=== PATIENT | female | born 1995 | race Two or more races ===

== ENCOUNTER 2021-04-28 17:36 | Outpatient (CLI) | payer OTHER | END 2021-04-28 22:15 | disposition home or self-care (01) | LOC: GENOP 17:36 | DX: O99.891 Other specified diseases and conditions complicating pregnancy (principal); O36.8320 Maternal care for abnormalities of the fetal heart rate or rhythm, second trimester, not applicable or unspecified; R10.9 Unspecified abdominal pain; R11.0 Nausea; R42 Dizziness and giddiness; Z3A.26 26 weeks gestation of pregnancy | CPT/HCPCS: 81001; 82731; 96360; 96361; 96376; J2405; J7120 ==

== ENCOUNTER 2021-07-27 15:54 | Inpatient (IN) | payer OTHER ==
[~2021-07-27] VITALS: Ht 165.1 cm; Wt 104.8 kg
[2021-07-27 16:51] LABS: HEMOGLOBIN 10.4 gm/dl (12.3-15.3); RED BLOOD COUNT 4.28 M/UL (4.00-5.10); WHITE BLOOD COUNT 9.3 K/UL (4.5-11.0)
[2021-07-27] MEDS ORDERED: PRENATAL VITAM1 EAC3 PO (17:28)
[2021-07-29 01:41] LABS: HEMOGLOBIN 9.8 gm/dl (12.3-15.3)
[2021-07-29] MEDS ORDERED: DOCUSATE SODIU100 MG PO (10:45)
[2021-07-29] MEDS ORDERED: HYDROCODON-ACE1 EAC4 PO (10:45)
[2021-07-29] MEDS ORDERED: IBUPROFEN600 MG PO (10:45)
== END 2021-07-29 16:26 | disposition home or self-care (01) | DRG 807 ==
LOC: GENOP 15:54 → OB 16:24
PROVIDERS: ADMIT Obstetrics & Gynecology
PROC: 4A1HXCZ Monitoring of Products of Conception, Cardiac Rate, External Approach (ICD-10-PCS; 2021-07-27)
PROC: 10E0XZZ Delivery of Products of Conception, External Approach (ICD-10-PCS; principal; 2021-07-28)
PROC: 10907ZC Drainage of Amniotic Fluid, Therapeutic from Products of Conception, Via Natural or Artificial Opening (ICD-10-PCS; 2021-07-28)
PROC: 0UQMXZZ Repair Vulva, External Approach (ICD-10-PCS; 2021-07-28)
DX: O34.219 Maternal care for unspecified type scar from previous cesarean delivery (principal); Z37.0 Single live birth; O70.0 First degree perineal laceration during delivery; Z3A.39 39 weeks gestation of pregnancy; Z20.822 Contact with and (suspected) exposure to COVID-19; Z28.310 Unvaccinated for COVID-19; Z87.440 Personal history of urinary (tract) infections
CPT/HCPCS: 36415; 82800; 85014; 85018; 85025; G0463; J0595; J2405; J2590